=== PATIENT | female | born 1960 | race African-American/Black ===

== ENCOUNTER 2022-03-22 19:37 | Emergency (ER) | payer SELFPAY ==
[~2022-03-22] VITALS: Ht 167.6 cm; Wt 72.1 kg
[2022-03-22] MEDS ORDERED: NAPROSYN500 MG PO (22:14)
== END 2022-03-22 22:26 | disposition home or self-care (01) ==
LOC: FSED 19:43
DX: M25.531 Pain in right wrist (principal); M77.8 Other enthesopathies, not elsewhere classified; I10 Essential (primary) hypertension; E78.5 Hyperlipidemia, unspecified; F17.210 Nicotine dependence, cigarettes, uncomplicated
CPT/HCPCS: 99283